=== PATIENT | female | born 1945 | race Two or more races ===

== ENCOUNTER 2024-05-25 07:00 | Inpatient (IN) | payer MEDICARE, OTHER ==
[~2024-05-25] VITALS: Ht 170.2 cm; Wt 83.0 kg
[~2024-05-25 07:00] MED LIST: AMOX500C2 PO; LANS30CA58 PO
[2024-05-25 08:19] LABS: Basophils # (auto) 0 10 ^3/uL (0-0.2); Basophils % (auto) 0.4 % (0.0-2.0); Eosinophils # (auto) 0.1 10 ^3/uL (0-0.8); Eosinophils % (auto) 0.6 % (0.0-7.0); Hematocrit 44.7 % (36.0-46.0); Hemoglobin 15.3 g/dL (12.2-16.2); Lymphocytes # (auto) 1.8 10 ^3/uL (0.4-5.4); Lymphocytes % (auto) 15.6 % (10.0-50.0); Mean Corpuscular Hemoglobin 30.4 pg (28.0-32.0); Mean Corpuscular Hgb Conc. 34.1 g/dL (32.0-36.0); Monocytes # (auto) 0.7 10 ^3/uL (0-1.3); Monocytes % (auto) 5.6 % (0.0-12.0); Neutrophils # (auto) 9.1 10 ^3/uL (1.6-8.6); Neutrophils % (auto) 77.8 % (37.0-80.0); Nucleated Red Blood Cells % 0.2 %; Platelet Count (auto) 244 10^3/uL (140-450); Red Blood Cells 5.03 10^6/uL (4.0-5.20); Red Cell Distribution Width 13.6 % (11.8-14.3); White Blood Cell 11.6 10^3/uL (4.4-10.8)
[2024-05-25 08:26] LABS: Chloride 106 mmol/L (98-107); Potassium 4.1 mmol/L (3.5-5.1); Sodium 139 mmol/L (136-145)
[2024-05-25 08:27] LABS: Anion Gap 8 (5-15); Carbon Dioxide 25 mmol/L (20-31)
[2024-05-25 08:33] LABS: BUN/Creatinine Ratio 16.2 (10.0-20.0); Blood Urea Nitrogen 12 mg/dL (9-23)
[2024-05-25 08:41] LABS: Calcium 10.5 mg/dL (8.7-10.4); Glucose 115 mg/dL (74-106)
--- NOTE | 2024-05-25 10:06 | ED.PDOC ---
History of Present Illness HPI Comments 79 y/o F presents with c/o abdominal pain and rectal bleeding, today. Patient endorses on sudden and unprovoked onset of symptoms, that began with cramping that has been persisting since last night, with additional onset of bright-red blood production from her rectum, this morning. Patient comments on 35mg ASA use, last night, and having no Hx of hemorrhoids or similar symptoms in the past along with any additional relevant or pertinent Hx. She denies having any nausea, vomiting, diarrhea, weakness, lightheadedness, or other associated symptoms or modifiers at this time. Chief Complaint: Rectal Pain Time Seen by MD: 09:10 Primary Care Provider: GRGEORIO Reviewed Notes: Nurses Notes, Medications, Allergies Allergies: Coded Allergies: Latex (Verified Allergy, Severe, 05/25/24) Home Meds Reported Medications Tolterodine Tartrate (Tolterodine Tartrate ER) 4 Mg Cap, 1 CAP PO DAILY 05/25/24 Levothyroxine Sodium (Synthroid) 25 Mcg Tab, 1 TAB PO DAILY 05/25/24 Rosuvastatin Calcium (Rosuvastatin Calcium) 10 Mg Tab, 1 TAB PO DAILY 05/25/24 Losartan Potassium (Losartan Potassium) 50 Mg Tab, 1 TAB PO DAILY 05/25/24 Information Source: Patient Mode of Arrival: Ambulatory Severity: Moderate Timing: Days Duration: Since onset Prehospital treatment: None Past Medical History PAST MEDICAL HISTORY: HTN Past Medical History (Other): ASA use Surgical History (Other): back Sx Gastrointestinal: reports: abdominal pain, rectal bleeding All Other Systems: Reviewed and Negative (negative unless otherwise stated above or in HPI) Physical Exam General Appearance: Moderate Distress HEENT: Normal ENT Inspection, Pharynx Normal, TMs Normal Neck: Full Range of Motion, Non-Tender, Normal, Normal Inspection Respiratory: Chest Non-Tender, Lungs Clear, No Accessory Muscle Use, No Respiratory Distress, Normal Breath Sounds Cardiovascular: No Edema, No JVD, No Murmur, No Gallop, Normal Peripheral Pulses, Regular Rate/Rhythm Breast Exam: Deferred Gastrointestinal: No Organomegaly, Non Tender, No Pulsatile Mass, Normal Bowel Sounds, Soft Genitalia: Deferred Pelvic: Deferred Rectal: Deferred Extremities: No calf tenderness, Normal capillary refill, Normal inspection, Normal range of motion, Non-tender, No pedal edema Musculoskeletal : Apperance: Normal Neurologic: Alert, No Motor Deficits, No Sensory Deficits Cerebellar Function: Normal Reflexes: Normal Skin: Normal Color Peripheral Pulses: 3+ Radial (R), 3+ Radial (L) Lymphatic: No Adenopathy Was a procedure done? Was a procedure done?: No Differential Dx Considerations may include: hemorrhoids, lower GI bleed, gastritis, gastroenteritis, UTI X-Ray, Labs, Meds, VS Vital Signs Date Time Temp Pulse Resp B/P (MAP) Pulse Ox O2 Delivery O2 Flow Rate FiO2 05/25/24 10:32 87 16 108/74 (85) 96 05/25/24 07:19 98.9 95 16 117/86 (96) 95 Lab Test 05/25/24 08:02 Range/Units White Blood Count 11.6 H 4.4-10.8 10^3/uL Red Blood Count 5.03 4.0-5.20 10^6/uL Hemoglobin 15.3 12.2-16.2 g/dL Hematocrit 44.7 36.0-46.0 % Mean Corpuscular Volume 89.0 80.0-100.0 fL Mean Corpuscular Hemoglobin 30.4 28.0-32.0 pg Mean Corpuscular Hemoglobin Concent 34.1 32.0-36.0 g/dL Red Cell Distribution Width 13.6 11.8-14.3 % Platelet Count 244 140-450 10^3/uL Mean Platelet Volume 6.7 L 6.9-10.8 fL Neutrophils (%) (Auto) 77.8 37.0-80.0 % Lymphocytes (%) (Auto) 15.6 10.0-50.0 % Monocytes (%) (Auto) 5.6 0.0-12.0 % Eosinophils (%) (Auto) 0.6 0.0-7.0 % Basophils (%) (Auto) 0.4 0.0-2.0 % Neutrophils # (Auto) 9.1 H 1.6-8.6 10 ^3/uL Lymphocytes # (Auto) 1.8 0.4-5.4 10 ^3/uL Monocytes # (Auto) 0.7 0-1.3 10 ^3/uL Eosinophils # (Auto) 0.1 0-0.8 10 ^3/uL Basophils # (Auto) 0 0-0.2 10 ^3/uL Nucleated Red Blood Cells 0.2 % Sodium Level 139 136-145 mmol/L Potassium Level 4.1 3.5-5.1 mmol/L Chloride Level 106 98-107 mmol/L Carbon Dioxide Level 25 20-31 mmol/L Anion Gap 8 5-15 Blood Urea Nitrogen 12 9-23 mg/dL Creatinine 0.74 0.550-1.02 mg/dL Glomerular Filtration Rate Calc 83 >90 mL/min BUN/Creatinine Ratio 16.2 10.0-20.0 Serum Glucose 115 H 74-106 mg/dL Calcium Level 10.5 H 8.7-10.4 mg/dL Triglycerides Level 249 H < 150 mg/dL Cholesterol Level 149 < 200 mg/dL LDL Cholesterol 72 < 100 mg/dL HDL Cholesterol 53 40-59 mg/dL Thyroid Stimulating Hormone (TSH) 2.97 0.55-4.78 uIU/mL Patient alert. Complaining of blood per rectum. Abdominal discomfort. Vitals stable. Ambulating. Continues to have blood per rectum. Possible hemorrhoid. Require colonoscopy. GI consultation. WBC slightly elevated. Establish intravenous access. Was given Flagyl. Reviewed her previous visit. Explained to the patient. Continue cardiac monitoring. Time of 1ST Reevaluation: 09:40 Reevaluation 1ST: Unchanged Patient Education/Counseling: Diagnosis, Treatment Family Education/Counseling: No Family Present Additional Information The following tests were ordered, and results were reviewed by me: BMP, CBC, UA I discussed treatment and results with medical personnel Departure 1 Departure Time of Disposition: 10:33 Impression: Primary Impression: GI bleed Qualified Codes: K92.2 - Gastrointestinal hemorrhage, unspecified Additional Impression: Hemorrhoid Qualified Codes: K64.9 - Unspecified hemorrhoids Disposition: ADMITTED INPATIENT Admit to: Med Surg Condition: Guarded Critical Care Note Critical Care Time?: Yes (45 min-critical care time only) Stability Stability form required: No Heart Score Heart Score: Heart Score Response (Comments) Value History N/A 0 EKG N/A 0 Age N/A 0 Risk Factors N/A 0 Troponin N/A 0 Total 0 I personally scribed for JIAN LEBLANC MD ([email or web address]) on 05/25/24 at 10:06. Electronically submitted by Lino Miller ([email or web address]). I personally scribed for JIAN LEBLANC MD ([email or web address]) on 05/25/24 at 17:03. Electronically submitted by Lino Miller ([email or web address]). I personally scribed for JIAN LEBLANC MD ([email or web address]) on 05/25/24 at 17:03. Electronically submitted by Lino Miller ([email or web address]). JIAN LEBLANC MD May 25, 2024 10:06
[2024-05-25] MEDS ORDERED: ONDANSETRON HCL 4 MG/2 ML VIAL IV PRN (11:15)
--- NOTE | 2024-05-25 11:15 | DVHHP2 ---
History of Present Illness Reason for Visit: Rectal bleed History of Present Illness This 79-year-old female with past medical history of hypertension, hypothyroidism, overactive bladder, and tobacco use, presents in the ED with a chief complaint of abdominal pain and rectal bleeding. The patient reports abdominal pain associated with nausea, vomiting, cramps, and bright red blood in stools started last night. The patient denies syncope, chest pain, palpitations, hematemesis, or other acute symptoms. The patient is currently taking aspirin, reports last colonoscopy eight years ago with normal findings. Past Medical History As stated in HPI Past Surgical History s/p Medtronic bladder stimulator Family History Reviewed, non-contributory to the management of this case. Past Social History Admits to tobacco use three cigarettes per day for many years Denies illicit drug use ETOH occasion Review of Systems Constitutional: Yes: Malaise; No: Fever, Chills, Sweats, Weakness, Other Eyes: No: Pain, Vision change, Conjunctivae inflammation, Eyelid inflammation, Other, Redness ENT: No: Ear pain, Ear discharge, Nose pain, Nose discharge, Nose congestion, Mouth pain, Mouth swelling, Throat pain, Throat swelling, Other Respiratory: No: Cough, Dry, Shortness of breath, SOB with excertion, Wheezing, Hemoptysis, Pleuritic Pain, Sputum, Wheezing, Other Cardiovascular: No: Chest Pain, Palpitations, Orthopnea, Paroxysmal Noc. Dyspnea, Edema, Lt Headedness, Other Gastrointestinal: Nausea, Abdominal Pain, Melena, Other (Bright red blood in stools); No: Vomiting, Diarrhea, Constipation, Hematochezia Genitourinary: No Dysuria, No Frequency, No Incontinence, No Hematuria, No Retention, No Other Musculoskeletal: No: other, neck pain, shoulder pain, arm pain, back pain, hand pain, leg pain, foot pain Skin: No: Rash, Lesions, Jaundice, Bruising, Other Neurological: No: Weakness, Numbness, Incoordination, Change in speech, Confusion, Seizures, Other Allergies: Coded Allergies: Latex (Verified Allergy, Severe, 05/25/24) Exam Vital Signs Vital Signs Date Time Temp Pulse Resp B/P (MAP) Pulse Ox O2 Delivery O2 Flow Rate FiO2 05/25/24 10:32 87 16 108/74 (85) 96 05/25/24 07:19 98.9 General Appearance: Alert, Oriented X3, Cooperative, mild distress HEENT: Atraumatic, PERRLA, EOMI, Mucous membr. moist/pink Respiratory: Clear to auscultation, Normal air movement Cardiovascular: Regular rate, Normal S1, Normal S2, No murmurs Abdominal: Normal bowel sounds, Soft, No tenderness Extremities: No clubbing, No cyanosis, No edema, Normal pulses Skin: No rashes, No breakdown, No significant lesion Neuro: Normal gait, Normal tone Psych/Mental Status: Mental status NL Labs/Xrays Labs Test 05/25/24 08:02 Range/Units White Blood Count 11.6 H 4.4-10.8 10^3/uL Red Blood Count 5.03 4.0-5.20 10^6/uL Hemoglobin 15.3 12.2-16.2 g/dL Hematocrit 44.7 36.0-46.0 % Mean Corpuscular Volume 89.0 80.0-100.0 fL Mean Corpuscular Hemoglobin 30.4 28.0-32.0 pg Mean Corpuscular Hemoglobin Concent 34.1 32.0-36.0 g/dL Red Cell Distribution Width 13.6 11.8-14.3 % Platelet Count 244 140-450 10^3/uL Mean Platelet Volume 6.7 L 6.9-10.8 fL Neutrophils (%) (Auto) 77.8 37.0-80.0 % Lymphocytes (%) (Auto) 15.6 10.0-50.0 % Monocytes (%) (Auto) 5.6 0.0-12.0 % Eosinophils (%) (Auto) 0.6 0.0-7.0 % Basophils (%) (Auto) 0.4 0.0-2.0 % Neutrophils # (Auto) 9.1 H 1.6-8.6 10 ^3/uL Lymphocytes # (Auto) 1.8 0.4-5.4 10 ^3/uL Monocytes # (Auto) 0.7 0-1.3 10 ^3/uL Eosinophils # (Auto) 0.1 0-0.8 10 ^3/uL Basophils # (Auto) 0 0-0.2 10 ^3/uL Nucleated Red Blood Cells 0.2 % Sodium Level 139 136-145 mmol/L Potassium Level 4.1 3.5-5.1 mmol/L Chloride Level 106 98-107 mmol/L Carbon Dioxide Level 25 20-31 mmol/L Anion Gap 8 5-15 Blood Urea Nitrogen 12 9-23 mg/dL Creatinine 0.74 0.550-1.02 mg/dL Glomerular Filtration Rate Calc 83 >90 mL/min BUN/Creatinine Ratio 16.2 10.0-20.0 Serum Glucose 115 H 74-106 mg/dL Calcium Level 10.5 H 8.7-10.4 mg/dL Assessment/Plan Assessment/Plan # rule out GI bleed Admit to medical unit GI consult Ct abd/pel pending FOBT pending PPI Clear liquid diet IV fluid Avoid anticoags/antplatelets until seen by GI # leukocytosis, possible UTI UA pending Empiric antibiotic ceftriaxone Blood in urine culture # hypertension Continue losartan # hyperlipidemia Continue with statins Check lipid panel # hypothyroidism Continue with Synthroid Check TSH # overactive bladder Continue Tolterodine # tobacco use Smoking cessation counseled Nicotine patch DVT prophylaxis Discussed medical plan with patient Plan discussed with: Patient Date of Service: May 25, 2024 Billing Provider: VIPUL RIVERA Common Visit Codes: [id number] INP/OBS CARE (HIGH) VIPUL RIVERA May 25, 2024 11:15
[2024-05-25] MEDS ORDERED: cefTRIAXone 1GM/50ML D5W 50 ML IV SCH (12:00)
[2024-05-25] MEDS ORDERED: LOSA-534 PO (12:02)
[2024-05-25] MEDS ORDERED: TOLT1CAP29 PO (12:02)
[2024-05-25] MEDS ORDERED: ROSU10TA64 PO (12:02)
[2024-05-25] MEDS ORDERED: LEVO25TA2 PO (12:02)
[2024-05-25] MEDS: NICOTINE 7MG/24HR TOPICAL PATCH TD ONE (12:15)
[2024-05-25 12:35] LABS: LDL Cholesterol 72 mg/dL (< 100)
[2024-05-25 12:36] LABS: Cholesterol 149 mg/dL (< 200); HDL Cholesterol 53 mg/dL (40-59)
[2024-05-25 12:38] LABS: Triglycerides 249 mg/dL (< 150)
--- NOTE | 2024-05-25 13:37 | DVHINCON2 ---
Date of service: May 25, 2024 Referring Physician [place] Reason for Consultation Abdominal pain and rectal bleeding History of Present Illness This 79-year-old female with past medical history of hypertension, hypothyroidism, overactive bladder, and tobacco use, presents in the ED with a c hief complaint of abdominal pain and rectal bleeding. The patient reports abdominal pain associated with nausea, vomiting, cramps, and bright red blood in stools started last night. The patient denies syncope, chest pain, palpitations, hematemesis, or other acute symptoms. The patient is currently taking aspirin, reports last colonoscopy eight years ago with normal findings. Past Medical History Hypertension, hypothyroidism, overactive bladder, and tobacco use Past Surgical History Medtronic Bladder stimulator Allergies: Coded Allergies: Latex (Verified Allergy, Severe, 05/25/24) Home Meds Reported Medications Tolterodine Tartrate (Tolterodine Tartrate ER) 4 Mg Cap, 1 CAP PO DAILY 05/25/24 Levothyroxine Sodium (Synthroid) 25 Mcg Tab, 1 TAB PO DAILY 05/25/24 Rosuvastatin Calcium (Rosuvastatin Calcium) 10 Mg Tab, 1 TAB PO DAILY 05/25/24 Losartan Potassium (Losartan Potassium) 50 Mg Tab, 1 TAB PO DAILY 05/25/24 Current Medications Current Medications Medications (Trade) Dose Ordered Sig/[facility] Route PRN Reason Start Time Stop Time Status Last Admin Sodium Chloride 1,000 ml @ 60 mls/hr [id number] IV 05/25/24 11:15 Ondansetron HCl (Zofran) 4 mg Q4HP PRN IV NAUSEA / VOMITING 05/25/24 11:15 Pantoprazole Sodium (Protonix) 40 mg DAILY IV 05/26/24 10:00 Ceftriaxone Sodium 50 ml @ 100 mls/hr DAILY@09 IV 05/25/24 12:00 Levothyroxine Sodium (Synthroid Tablet) 25 mcg DAILY PO 05/26/24 10:00 Losartan Potassium (Cozaar Tablet) 50 mg DAILY PO 05/26/24 10:00 Patient Own Medication 1 tab DAILY PO 05/26/24 10:00 UNV Patient Own Medication 1 cap DAILY PO 05/26/24 10:00 UNV Nicotine (Nicoderm 7MG/ 24HR) 1 patch DAILY TD 05/26/24 10:00 Vital Signs Vital Signs Date Time Temp Pulse Resp B/P (MAP) Pulse Ox O2 Delivery O2 Flow Rate FiO2 05/25/24 10:32 87 16 108/74 (85) 96 05/25/24 07:19 98.9 Physical Exam General Appearance: Alert, Oriented X3, Cooperative, mild distress HEENT: Atraumatic, PERRLA, EOMI, Mucous membr. moist/pink Respiratory: Clear to auscultation, Normal air movement Cardiovascular: Regular rate, Normal S1, Normal S2, No murmurs Abdominal: Normal bowel sounds, Soft, No tenderness Extremities: No clubbing, No cyanosis, No edema, Normal pulses Skin: No rashes, No breakdown, No significant lesion Neuro: Normal gait, Normal tone Psych/Mental Status: Mental status NL Labs/Diagnostic Data Labs Test 05/25/24 08:02 Range/Units White Blood Count 11.6 H 4.4-10.8 10^3/uL Red Blood Count 5.03 4.0-5.20 10^6/uL Hemoglobin 15.3 12.2-16.2 g/dL Hematocrit 44.7 36.0-46.0 % Mean Corpuscular Volume 89.0 80.0-100.0 fL Mean Corpuscular Hemoglobin 30.4 28.0-32.0 pg Mean Corpuscular Hemoglobin Concent 34.1 32.0-36.0 g/dL Red Cell Distribution Width 13.6 11.8-14.3 % Platelet Count 244 140-450 10^3/uL Mean Platelet Volume 6.7 L 6.9-10.8 fL Neutrophils (%) (Auto) 77.8 37.0-80.0 % Lymphocytes (%) (Auto) 15.6 10.0-50.0 % Monocytes (%) (Auto) 5.6 0.0-12.0 % Eosinophils (%) (Auto) 0.6 0.0-7.0 % Basophils (%) (Auto) 0.4 0.0-2.0 % Neutrophils # (Auto) 9.1 H 1.6-8.6 10 ^3/uL Lymphocytes # (Auto) 1.8 0.4-5.4 10 ^3/uL Monocytes # (Auto) 0.7 0-1.3 10 ^3/uL Eosinophils # (Auto) 0.1 0-0.8 10 ^3/uL Basophils # (Auto) 0 0-0.2 10 ^3/uL Nucleated Red Blood Cells 0.2 % Sodium Level 139 136-145 mmol/L Potassium Level 4.1 3.5-5.1 mmol/L Chloride Level 106 98-107 mmol/L Carbon Dioxide Level 25 20-31 mmol/L Anion Gap 8 5-15 Blood Urea Nitrogen 12 9-23 mg/dL Creatinine 0.74 0.550-1.02 mg/dL Glomerular Filtration Rate Calc 83 >90 mL/min BUN/Creatinine Ratio 16.2 10.0-20.0 Serum Glucose 115 H 74-106 mg/dL Calcium Level 10.5 H 8.7-10.4 mg/dL Triglycerides Level 249 H < 150 mg/dL Cholesterol Level 149 < 200 mg/dL LDL Cholesterol 72 < 100 mg/dL HDL Cholesterol 53 40-59 mg/dL Thyroid Stimulating Hormone (TSH) 2.97 0.55-4.78 uIU/mL Problems(with codes): (1) Abdominal pain (2) Nausea & vomiting (3) GI bleed Plan/Recommendation Assessment plan IV fluid hydration Patient has been started on broad-spectrum antibiotics Differential diagnosis includes possible bleeding from colitis infectious or ischemic bowel disease or diverticular disease Awaiting CT scan of the abdomen pelvis IV PPI Clear liquid diet Stool for occult blood, urine culture Monitor labs Colonoscopy to be considered after CT scan review and above workup Plan discussed with: Other (None) ERLINDA REVELES MD May 25, 2024 13:37
--- NOTE | 2024-05-25 14:01 | DVH ---
Exam: CT CT AB PEL WO CON-NO ORAL OR IV History: rule out gi bleed Comparison Study: None available at time of dictation. TECHNIQUE: Multidetector CT of the abdomen was performed from lung bases to pubic symphysis. Imaging was performed without IV contrast. Axial, coronal and sagittal multiplanar reformats were obtained fr om the axial data set by the technologist. Radiation Dose Information: CT Dose: CTDI volume is 13.74 mGy. Dose-length product is 780.26 mGy*cm FINDINGS: Evaluation of solid organs is limited due to lack of intravenous contrast use. Findings: Lung Bases: No acute or significant lung base finding. Normal heart size. No pleural or pericardial effusion. Liver: The liver is normal in size. No focal lesions. Gallbladder and Biliary Tree: Unremarkable Spleen: Unremarkable Pancreas: The pancreas is grossly normal in appearance. Adrenal Glands: Unremarkable Kidneys: Kidneys are grossly normal without calculi or hydronephrosis. Bladder: Grossly unremarkable for degree of distention. Bowel: The stomach is grossly normal in appearance. Small bowel and colon are normal in caliber and d istribution. The appendix is not visualized; however, no secondary findings of acute appendicitis id entified. Ascites: Absent Lymphadenopathy: No mesenteric, retroperitoneal or periportal lymphadenopathy. Abdominal Wall and Mesentery: Unremarkable. Vasculature: The visualized abdominal aorta is normal in size and caliber. Evaluation of abdominal a nd pelvic vessels is limited due to lack of intravenous contrast. Pelvic Organs: Unremarkable Musculoskeletal: No aggressive focal bony lesions, acute fractures or dislocation. Pedicle screws and rods in place Soft tissues: Unremarkable IMPRESSION: 1. No calcified gallstones 2. No nephrolithiasis or hydronephrosis 3. No CT findings to suggest bowel obstruction. 4. Unable to exclude GI bleed without IV contrast. 5. Pedicle screws and rods in place at L4-5. 6. Electronic device overlying the sacrum in the subcutaneous tissues with wire traversing sacrum and terminating in the right obturator muscle. Radiation optimization: All CT scans at this facility use at least one of these dose optimization smitha hniques: automated exposure control mA and/or kV adjustment per patient size (includes targeted exam s where dose is matched to clinical indication) or iterative reconstruction. HS:Y
[2024-05-25] MEDS: SODIUM CHLORIDE 0.9% 1,000 ML IV SCH (14:29)
[2024-05-25 17:00] VITALS: BP 129/74; PULSE 79; RESP 17; TEMP 98; O2SAT 93
[2024-05-25 18:00] VITALS: BP 129/74; PULSE 79; RESP 18; TEMP 98; O2SAT 98
[2024-05-25] MEDS ORDERED: ACETAMINOPHEN 325 MG TAB PO PRN (18:00)
[2024-05-25] MEDS: PANTOPRAZOLE 40 MG/10 ML VIAL INJ IV ONE (18:26)
[2024-05-25] MEDS: cefTRIAXone 1GM/50ML D5W 50 ML IV SCH (18:26)
[2024-05-25 20:00] VITALS: PULSE 90; RESP 18; O2SAT 93
[2024-05-25 20:55] LABS: Urine Bacteria None Seen /hpf (None Seen)
[2024-05-25 21:00] VITALS: BP 98/58; PULSE 90; RESP 18; TEMP 99.1; O2SAT 93
[2024-05-25 21:11] LABS: Urine Blood TRACE /uL (Negative); Urine Clarity Clear (Clear); Urine Color Yellow (Yellow); Urine Hyaline Cast FEW /lpf (0 - 2); Urine Mucus FEW (None Seen); Urine Protein, UAD Negative (Negative); Urine Specific Gravity 1.022 (1.001-1.035); Urine Urobilinogen Normal (Negative); Urine WBC 7 /hpf (0 - 5); Urine pH 5.5 (5.0-9.0)
[2024-05-25] MEDS: ATORVASTATIN 20 MG TAB PO SCH (21:17)
[2024-05-26] VITALS (9 sets, daily range): BP systolic 114–135; BP diastolic 67–83; PULSE 69–90; RESP 17–20; TEMP 97.5–98.9; O2SAT 94–98
[2024-05-26] MEDS: LEVOTHYROXINE SODIUM 25 MCG TAB PO SCH (05:06)
[2024-05-26 07:13] LABS: Basophils # (auto) 0 10 ^3/uL (0-0.2); Basophils % (auto) 0.2 % (0.0-2.0); Eosinophils # (auto) 0.2 10 ^3/uL (0-0.8); Eosinophils % (auto) 1.9 % (0.0-7.0); Hematocrit 40.9 % (36.0-46.0); Lymphocytes # (auto) 2.1 10 ^3/uL (0.4-5.4); Lymphocytes % (auto) 24.1 % (10.0-50.0); Mean Corpuscular Hemoglobin 30.8 pg (28.0-32.0); Mean Corpuscular Hgb Conc. 34.3 g/dL (32.0-36.0); Mean Corpuscular Volume 89.9 fL (80.0-100.0); Monocytes # (auto) 0.7 10 ^3/uL (0-1.3); Monocytes % (auto) 7.8 % (0.0-12.0); Neutrophils # (auto) 5.8 10 ^3/uL (1.6-8.6); Platelet Count (auto) 216 10^3/uL (140-450); Red Blood Cells 4.55 10^6/uL (4.0-5.20); Red Cell Distribution Width 13.5 % (11.8-14.3); White Blood Cell 8.7 10^3/uL (4.4-10.8)
[2024-05-26 08:05] LABS: Alanine Aminotransferase 19 U/L (7-40); Albumin 3.9 g/dL (3.2-4.8); Alkaline Phosphatase 64 U/L (46-116); Anion Gap 8 (5-15); Aspartate Aminotransferase 26 U/L (13-40); BUN/Creatinine Ratio 14.5 (10.0-20.0); Bilirubin, Total 0.6 mg/dL (0.2-1.0); Blood Urea Nitrogen 10 mg/dL (9-23); Calcium 10.1 mg/dL (8.7-10.4); Carbon Dioxide 24 mmol/L (20-31); Chloride 109 mmol/L (98-107); Glucose 97 mg/dL (74-106); Potassium 3.7 mmol/L (3.5-5.1); Sodium 141 mmol/L (136-145)
[2024-05-26] MEDS: NICOTINE 7MG/24HR TOPICAL PATCH TD SCH (09:39)
[2024-05-26] MEDS: PANTOPRAZOLE 40 MG/10 ML VIAL INJ IV SCH (09:55)
[2024-05-26] MEDS: LOSARTAN POTASSIUM 50 MG TAB PO SCH (09:56)
[2024-05-26] MEDS: TOLTERODINE TARTRATE 1 MG PO SCH (10:00)
--- NOTE | 2024-05-26 15:24 | DVHPN2 ---
Progress Note Date Seen: May 26, 2024 Resident Creating Document: RYDER COURTNEY RESIDENT Medical Necessity Reason Pt with a Central, PICC or Fol: No Medical Necessity Reason No more bleeding per rectum Subjective Review of Systems Patient was seen and examined today. Patient was sitting in bed doing a puzzle. She does not appear to be in any form of acute respiratory distress or any distress and she has no complaints. GI consulted to see this patient because she presented with acute bright red blood bleeding per rectum. No more rectal bleeding associated with bowel movement since yesterday afternoon. Lab work today showed stable hemoglobin of 14 and hematocrit 40.9. Patient had a colonoscopy about 8 years ago. Therefore we recommend that patient get a colonoscopy done as an outpatient procedure. Review of Systems: RESPIRATORY:Normal, GI:Normal, NEURO:Normal Objective vital signs Vital Sign Date Time Temp Pulse Resp B/P (MAP) Pulse Ox O2 Delivery O2 Flow Rate FiO2 05/26/24 13:00 98.9 75 20 123/75 (91) 95 98.9 05/26/24 08:00 Room Air* 0 21 Total Intake and Output 05/25/24 05/25/24 05/26/24 15:00 23:00 07:00 Intake Total 50 ml 800 ml Output Total 2 ml Balance 50 ml 798 ml medications Current Medications Medications Dose Ordered Sig/[facility] Route Start Time Stop Time Status Last Admin Dose Admin Sodium Chloride 1,000 ml @ 60 mls/hr [id number] IV 05/25/24 11:15 Ondansetron HCl 4 mg Q4HP PRN IV 05/25/24 11:15 Pantoprazole Sodium 40 mg DAILY IV 05/26/24 10:00 05/26/24 09:55 40 MG Levothyroxine Sodium 25 mcg DAILY@0600 PO 05/26/24 06:00 05/26/24 05:06 25 MCG Losartan Potassium 50 mg DAILY PO 05/26/24 10:00 05/26/24 09:56 50 MG Atorvastatin Calcium 20 mg HS PO 05/25/24 22:00 05/25/24 21:17 20 MG Patient Own Medication 1 cap DAILY PO 05/26/24 10:00 Nicotine 1 patch DAILY TD 05/26/24 10:00 Ceftriaxone Sodium 50 ml @ 100 mls/hr DAILY@09 IV 05/25/24 17:50 05/26/24 09:56 100 MLS/HR Acetaminophen 325 mg Q4HP PRN PO 05/25/24 18:00 Examination General examination- Not in acute distress, Alert, Oriented X3, Cooperative, mild distress HEENT: Atraumatic, PEERLA,EOMI, Mucous membr. moist/pink Chest: S1-S2 audible, rate and rhythm regular, no murmur Lung: CTAB, no wheeze or rhonchi Abdomen: Non-distended, BS+, non-tender, no organomegaly Musculoskeletal: no acute joint swelling or tenderness Lower extremity: no leg edema Neurological: cranial nerves intact, no acute dysarthria or dysphagia Psychiatry: Normal mood and affect Skin- No rashes, No breakdown, No significant lesion laboratory and microbiology Laboratory Tests 05/26/24 06:15 Test 05/26/24 06:15 Range/Units Serum Glucose 97 74-106 mg/dL Microbiology Date/Time Source Procedure Growth Status 05/25/24 13:40 Blood Blood Culture - Preliminary NO GROWTH AFTER 24 HOURS OF INCUBATION. Resulted 05/25/24 07:30 Voided Urine Urine Culture - Preliminary Resulted Problem List/Assessment/Plan Problem List/Assessment/Plan Acute GI bleed, now resolved --> Rule out internal hemorrhoids --> Colonoscopy 8 years ago was unremarkable --> H/Hct stable (14/40.9) --> recommend outpatient colonoscopy Nausea and vomiting-> resolved Abdominal pains--> improved Thank you for allowing us to participate in the care of this patient. Will sign off now . Please call if you have any questions or concerns Plan discussed with: Patient KIMBERLYNDARIARYDER RESIDENT May 26, 2024 15:24
--- NOTE | 2024-05-26 16:14 | DVHDS2 ---
Discharge Summary Date of Admission May 25, 2024 at 11:14 Date of Discharge: May 26, 2024 Labs/Diagnostic Data: Laboratory Results Test 05/26/24 06:15 05/25/24 20:15 05/25/24 15:41 05/25/24 08:02 White Blood Count 8.7 10^3/uL (4.4-10.8) Red Blood Count 4.55 10^6/uL (4.0-5.20) Hemoglobin 14.0 g/dL (12.2-16.2) Hematocrit 40.9 % (36.0-46.0) Mean Corpuscular Volume 89.9 fL (80.0-100.0) Mean Corpuscular Hemoglobin 30.8 pg (28.0-32.0) Mean Corpuscular Hemoglobin Concent 34.3 g/dL (32.0-36.0) Red Cell Distribution Width 13.5 % (11.8-14.3) Platelet Count 216 10^3/uL (140-450) Mean Platelet Volume 7.4 fL (6.9-10.8) Neutrophils (%) (Auto) 66.0 % (37.0-80.0) Lymphocytes (%) (Auto) 24.1 % (10.0-50.0) Monocytes (%) (Auto) 7.8 % (0.0-12.0) Eosinophils (%) (Auto) 1.9 % (0.0-7.0) Basophils (%) (Auto) 0.2 % (0.0-2.0) Neutrophils # (Auto) 5.8 10 ^3/uL (1.6-8.6) Lymphocytes # (Auto) 2.1 10 ^3/uL (0.4-5.4) Monocytes # (Auto) 0.7 10 ^3/uL (0-1.3) Eosinophils # (Auto) 0.2 10 ^3/uL (0-0.8) Basophils # (Auto) 0 10 ^3/uL (0-0.2) Nucleated Red Blood Cells 0.0 % Sodium Level 141 mmol/L (136-145) Potassium Level 3.7 mmol/L (3.5-5.1) Chloride Level 109 mmol/L (98-107) Carbon Dioxide Level 24 mmol/L (20-31) Anion Gap 8 (5-15) Blood Urea Nitrogen 10 mg/dL (9-23) Creatinine 0.69 mg/dL (0.550-1.02) Glomerular Filtration Rate Calc 89 mL/min (>90) BUN/Creatinine Ratio 14.5 (10.0-20.0) Serum Glucose 97 mg/dL (74-106) Calcium Level 10.1 mg/dL (8.7-10.4) Total Bilirubin 0.6 mg/dL (0.2-1.0) Aspartate Amino Transferase (AST) 26 U/L (13-40) Alanine Aminotransferase (ALT) 19 U/L (7-40) Alkaline Phosphatase 64 U/L (46-116) Total Protein 6.0 g/dL (5.7-8.2) Albumin 3.9 g/dL (3.2-4.8) Urine Color Yellow (Yellow) Urine Clarity Clear (Clear) Urine pH 5.5 (5.0-9.0) Urine Specific [place] 1.022 (1.001-1.035) Urine Protein Negative (Negative) Urine Ketones 1+ (Negative) Urine Blood Trace /uL (Negative) Urine Nitrite Negative (Negative) Urine Bilirubin Negative (Negative) Urine Urobilinogen Normal mg/dL (Negative) Urine Leukocyte Esterase 1+ /uL (Negative) Urine RBC 2 /hpf (0 - 4) Urine WBC 7 /hpf (0 - 5) Urine Squamous Epithelial Cells Few /hpf (<5) Urine Bacteria None seen /hpf (None Seen) Urine Hyaline Casts Few /lpf (0 - 2) Urine Mucus Few (None Seen) Urine Glucose Normal mg/dL (Normal) Stool Occult Blood Positive (Negative) Stool Occult Blood Sample #3 (Negative) Triglycerides Level 249 mg/dL (< 150) Cholesterol Level 149 mg/dL (< 200) LDL Cholesterol 72 mg/dL (< 100) HDL Cholesterol 53 mg/dL (40-59) Thyroid Stimulating Hormone (TSH) 2.97 uIU/mL (0.55-4.78) Other Laboratory Tests 05/26/24 06:15 Brief Hx & Hospital Course: SEE DICTATED NOTE Condition at Discharge: Good Final Diagnosis/Problems List GI BLEED Discharge Disposition: Home Discharge Instruct/Medications Diet: Cardiac 2g Na,low cholest Activity: No Restrictions, As Tolerated Follow Up/Referral: SCHEDULE APPT WITH DR Carlos REVELES IN 1 WK Medications: RESUME HOME MEDS EXCEPT ASA Discharge Statement: "Patient was advised to return to the ER or call 911 if any headaches, dizziness, shortness of breath, chest pain, abdominal pain, bleeding, fevers, or worsening of medical condition. Patient was counseled about treatment plan, medications, possible side effects, patientverbalized understanding. All questions were answered to the best of my ability. This discharge took greater then 30 minutes in planning, reviewing documentation, counseling the patient, and discussing with other team members." ASSESSMENT ASSESSMENT Assessment GI BLEED Date of Service: May 26, 2024 Billing Provider: THEO MCMAHAN MD Common Visit Codes: 29139-MYX/OBS DISCH DAY >30min THEO MCMAHAN MD May 26, 2024 16:14
--- NOTE | 2024-05-26 16:17 | CODING ---
Date of Service: May 26, 2024 Billing Provider: THEO MCMAHAN MD Common Visit Codes: 96078-KRA/OBS DISCH DAY >30min Secondary Visit Codes: 30995-JDXLO CHNG SMOKING >10MIN, 54187-[id number] CARE PLAN 30 MINUTES THEO MCMAHAN MD May 26, 2024 16:17
--- NOTE | 2024-05-26 16:34 | DVHDS ---
DATE OF DISCHARGE: 05/26/2024 HISTORY OF PRESENT ILLNESS: The patient is a 79-year-old lady who was admitted with history of bright red blood per rectum and cramps and has history of hypertension, hypothyroidism, overactive bladder, and tobacco abuse. HOSPITAL COURSE: The patient was seen in GI consult by Dr. Charis Beal. The patient had a CT of abdomen that was essentially unremarkable. The patient's hemoglobin remained stable. The patient will now be discharged home to resume her home medication except for aspirin and will follow up as outpatient for outpatient colonoscopy. The patient will be discharged to resume her home medications except for aspirin. She has been asked to return if she has further bleeding. FINAL DIAGNOSES: Therefore, * Gastrointestinal bleeding, questionable diverticular. * Hypertension. * Hypothyroidism. * Tobacco abuse for which she was asked to quit. Time spent was 11 minutes. * History of back surgery. ADVANCE CARE PLANNING: The patient was a full code. Time spent was 19 minutes Time spent in discharge planning was 32 minutes. MD JAN Gutiérrez/SAI TID: [id number] RECEIPT: [id number]
== END 2024-05-26 18:10 | disposition home or self-care (01) | DRG 379 ==
LOC: ER 07:00 → OVERFLOW 11:14 → EAST 17:08
PROVIDERS: ADMIT Registered Nurse; ATTEND Internal Medicine
DX: K57.91 Diverticulosis of intestine, part unspecified, without perforation or abscess with bleeding (principal); E78.5 Hyperlipidemia, unspecified; E03.9 Hypothyroidism, unspecified; N32.81 Overactive bladder; I10 Essential (primary) hypertension; F17.210 Nicotine dependence, cigarettes, uncomplicated; D72.829 Elevated white blood cell count, unspecified; Z79.82 Long term (current) use of aspirin; Z79.899 Other long term (current) drug therapy
CPT/HCPCS: 36415; 74176; 80048; 80053; 80061; 81001; 82270; 84443; 85025; 87040; 87086; 99291; G0378; J2470

== ENCOUNTER → 2024-07-01 | Outpatient (CLI) | payer MEDICARE ==
[~2024-07-01] MED LIST changes: +LEVO25TA2 PO; +LOSA-534 PO; +ROSU10TA64 PO; +TOLT1CAP29 PO
[2024-07-01 16:16] LABS: Alanine Aminotransferase 21 U/L (7-40); Albumin 4.5 g/dL (3.2-4.8); Alkaline Phosphatase 77 U/L (46-116); Anion Gap 7 (5-15); Aspartate Aminotransferase 23 U/L (13-40); BUN/Creatinine Ratio 14.9 (10.0-20.0); Blood Urea Nitrogen 13 mg/dL (9-23); Carbon Dioxide 29 mmol/L (20-31); Chloride 106 mmol/L (98-107); Glucose 79 mg/dL (74-106); Potassium 4.7 mmol/L (3.5-5.1); Sodium 142 mmol/L (136-145)
[2024-07-01 16:17] LABS: Bilirubin, Total 0.5 mg/dL (0.2-1.0); Total Protein 7.1 g/dL (5.7-8.2)
[2024-07-01 16:25] LABS: Calcium 11.4 mg/dL (8.7-10.4)
== END | disposition home or self-care (01) ==
LOC: LAB 15:08
PROVIDERS: ATTEND Internal Medicine
DX: K92.2 Gastrointestinal hemorrhage, unspecified (principal)
CPT/HCPCS: 36415; 80053

== ENCOUNTER → 2024-07-30 | Outpatient (CLI) | payer MEDICARE ==
[2024-07-30 08:39] LABS: Calcium 10.6 mg/dL (8.7-10.4)
[2024-07-30 11:02] LABS: Urine Bacteria None Seen /hpf (None Seen)
[2024-07-30 11:11] LABS: Urine Blood TRACE /uL (Negative); Urine Clarity Clear (Clear); Urine Color Light-Yellow (Yellow); Urine Protein, UAD Negative (Negative); Urine Specific Gravity 1.019 (1.001-1.035); Urine Squamous Epithelial Cell FEW /hpf (<5); Urine Urobilinogen Normal (Negative); Urine WBC 7 /HPF (0-5); Urine pH 5.5 (5.0-9.0)
== END | disposition home or self-care (01) ==
LOC: LAB 07:41
PROVIDERS: ATTEND Internal Medicine
DX: E83.52 Hypercalcemia (principal); E03.9 Hypothyroidism, unspecified; E78.5 Hyperlipidemia, unspecified
CPT/HCPCS: 36415; 80061; 81001; 82310; 83970

== ENCOUNTER 2024-11-03 10:15 | Outpatient (CLI) | payer MEDICARE ==
[2024-11-03 10:58] LABS: Urine Bacteria FEW /hpf (None Seen); Urine Blood TRACE /uL (Negative); Urine Clarity Clear (Clear); Urine Color Colorless (Yellow); Urine Protein, UAD Negative (Negative); Urine Specific Gravity 1.008 (1.001-1.035); Urine Squamous Epithelial Cell FEW /hpf (<5); Urine Urobilinogen Normal (Negative); Urine WBC 2 /HPF (0-5)
[2024-11-03 11:12] LABS: HDL Cholesterol 52 mg/dL (40-59)
[2024-11-03 11:16] LABS: Cholesterol 215 mg/dL (< 200); LDL Cholesterol 137 mg/dL (< 100); Triglycerides 296 mg/dL (< 150)
== END 2024-11-03 17:00 | disposition home or self-care (01) ==
LOC: LAB 10:15
PROVIDERS: ATTEND Internal Medicine
DX: E78.5 Hyperlipidemia, unspecified (principal)
CPT/HCPCS: 36415; 80061; 81001

== ENCOUNTER 2025-02-25 10:13 | Outpatient (CLI) | payer MEDICARE ==
[2025-02-25 11:06] LABS: HDL Cholesterol 49.0 mg/dL (40-59)
[2025-02-25 11:09] LABS: Calcium 10.8 mg/dL (8.7-10.4); Cholesterol 209.0 mg/dL (< 200); Triglycerides 190.0 mg/dL (< 150)
== END 2025-02-25 17:00 | disposition home or self-care (01) ==
LOC: LAB 10:13
PROVIDERS: ATTEND Internal Medicine
DX: I10 Essential (primary) hypertension (principal); E78.5 Hyperlipidemia, unspecified; Z79.899 Other long term (current) drug therapy
CPT/HCPCS: 36415; 80061; 82310; 83036

== ENCOUNTER 2025-03-17 11:13 | Outpatient (CLI) | payer MEDICARE ==
[2025-03-17 12:40] LABS: Alanine Aminotransferase 14.0 U/L (7-40); Albumin 4.4 g/dL (3.2-4.8); Alkaline Phosphatase 67.0 U/L (46-116); Bilirubin, Direct 0.2 mg/dL (<0.3); Bilirubin, Total 0.6 mg/dL (0.2-1.0); Total Protein 7.0 g/dL (5.7-8.2)
== END 2025-03-17 17:00 | disposition home or self-care (01) ==
LOC: LAB 11:13
PROVIDERS: ATTEND Internal Medicine
DX: E78.5 Hyperlipidemia, unspecified (principal)
CPT/HCPCS: 36415; 80076